=== PATIENT | male | born 2000 | race Caucasian/White ===

== ENCOUNTER 2021-05-03 16:10 | Emergency (ER) | payer OTHER ==
[2021-05-03] MEDS ORDERED: PROTONIX 40 MG40 M1 PO (16:54)
== END 2021-05-03 17:07 | disposition home or self-care (01) ==
LOC: ER1 16:10
DX: K21.9 Gastro-esophageal reflux disease without esophagitis (principal); Z76.0 Encounter for issue of repeat prescription
CPT/HCPCS: 71045; 93005; 99284